=== PATIENT | male | born 1960 | race Caucasian/White ===

== ENCOUNTER 2020-11-08 10:14 | Outpatient (CLI) | payer OTHER, SELFPAY | END 2020-11-08 10:15 | disposition home or self-care (01) | LOC: ANHCOVIDVC 10:14 | PROVIDERS: PCP Family Medicine | DX: Z23 Encounter for immunization (principal) | CPT/HCPCS: 0001A; 91300 ==

== ENCOUNTER 2020-11-29 10:15 | Outpatient (CLI) | payer OTHER, SELFPAY | END 2020-11-29 10:16 | disposition home or self-care (01) | LOC: ANHCOVIDVC 10:15 | PROVIDERS: PCP Family Medicine | DX: Z23 Encounter for immunization (principal) | CPT/HCPCS: 0002A; 91300 ==

== ENCOUNTER 2021-05-18 00:47 | Day surgery (SDC) | payer OTHER, SELFPAY ==
[2021-05-08 14:58] VITALS: BMI 31.8
[2021-05-18 07:42] VITALS: BP 150/86; PULSE 91; RESP 18; TEMP 36.7; O2SAT 99; BMI 32.6
[2021-05-18] MEDS: LACTATED RINGERS 1,000 ML 150 ML IV CONT (07:51)
--- NOTE | 2021-05-18 08:28 | WPDGICN ---
Assessment and Plan Assessment and plan (1) Encounter for screening colonoscopy: Code(s): Z12.11 - Encounter for screening for malignant neoplasm of colon Status: Acute Assessment and Plan: Patient presents for screening colonoscopy. Appears to be at average risk for colon polyps. GI Consult Note Consult date/time: 05/18/21 08:28 HPI: Dre Brady is a 60 year old male Presents for screening colonoscopy. Patient reports that his current weight appetite bowel movements are normal. Is been more than 10 years since last colonoscopy. His family history is noncontributory. Patient reports no difficulties with bowel habits he has had no bleeding. He presents for routine screening exam. Review of Systems Review of Systems: All systems reviewed & are unremarkable except as noted in HPI and below PMFSH Past Medical History Medical History (Updated 05/18/21 @ 08:30 by Miles León MD) Benign essential HTN Hyperlipidemia Family History Family History Father Hypertension Mother Hypertension Other Family history of gout Social History Social History Smoking status: Former smoker Tobacco type: cigarettes and smokeless tobacco Smokeless tobacco user: chewing tobacco Alcohol intake: current Drinks per week: 12 Living arrangements: with family Spiritual care concerns: No Meds Home Medications and Allergies Home Medications Medication Instructions Recorded Confirmed Type aspirin 81 mg tablet,delayed 81 mg PO DAILY 02/20/21 05/08/21 History release cholecalciferol (vitamin D3) 125 125 mcg PO DAILY 02/20/21 05/08/21 History mcg (5,000 unit) tablet geriatric multivitamin-min 1 tablet PO DAILY tablet 02/20/21 05/08/21 History magnesium 200 mg tablet 400 mg PO DAILY tablet 02/20/21 05/08/21 History omega 5-uph-mjq-fish oil 1,200 mg 1 cap PO DAILY 02/20/21 05/08/21 History (144 mg-216 mg) capsule tumeric 100 mg-marlon 150 mg-olive 1 cap PO BID 02/20/21 05/08/21 History 50 mg-oreg 150 mg-caprylate capsule zinc gluconate 50 mg tablet 50 mg PO DAILY 02/20/21 05/08/21 History lisinopril 10 mg PO DAILY 05/08/21 05/08/21 History Allergies Allergy/AdvReac Type Severity Reaction Status Date / Time No Known Allergies Allergy Verified 05/18/21 07:42 Vital Signs Vital Signs - 24 hr 05/18/21 07:42 Temperature 98.1 F Pulse Rate 91 Respiratory Rate 18 Blood Pressure 150/86 H Pulse Oximetry 99 Exam Narrative: Physical exam reveals patient to be alert. Vital signs stable. HEENT exam is unremarkable. Patient is anicteric. Lungs are clear to auscultation and percussion. Heart is without murmur or extra sounds. Abdominal exam bowel sounds are present soft nontender with no organomegaly. Digital external rectal exam is normal.
--- NOTE | 2021-05-18 08:31 | P.PNAN_ITS ---
Anes - Initial Pre Proc Eval Procedure: Operation Date: 05/18/21 08:30 Proposed Procedures p Screening Colonoscopy - Miles León MD Date/Time: 05/18/21 08:31 Surgeon: Miles León MD Pre Op Diagnosis: neoplasm screening Patient Data Age: 60 Gender: M Height: 1.75 m Weight: 100.4 kg Last Vital Signs Temp 98.1 F 05/18/21 07:42 Pulse 91 05/18/21 07:42 Resp 18 05/18/21 07:42 BP 150/86 H 05/18/21 07:42 Pulse Ox 99 05/18/21 07:42 Allergies Allergy/AdvReac Type Severity Reaction Status Date / Time No Known Allergies Allergy Verified 05/18/21 07:42 Home Medications Medication Instructions Recorded Confirmed Type aspirin 81 mg tablet,delayed 81 mg PO DAILY 02/20/21 05/08/21 History release cholecalciferol (vitamin D3) 125 125 mcg PO DAILY 02/20/21 05/08/21 History mcg (5,000 unit) tablet geriatric multivitamin-min 1 tablet PO DAILY tablet 02/20/21 05/08/21 History magnesium 200 mg tablet 400 mg PO DAILY tablet 02/20/21 05/08/21 History omega 4-vmt-qdi-fish oil 1,200 mg 1 cap PO DAILY 02/20/21 05/08/21 History (144 mg-216 mg) capsule tumeric 100 mg-marlon 150 mg-olive 1 cap PO BID 02/20/21 05/08/21 History 50 mg-oreg 150 mg-caprylate capsule zinc gluconate 50 mg tablet 50 mg PO DAILY 02/20/21 05/08/21 History lisinopril 10 mg PO DAILY 05/08/21 05/08/21 History Patient hx anesthesia problems: none Family hx anesthesia problems: none Results Review: All pre-operative results and documents have been reviewed as part of the pre-operative evaluation. [facility] Past Medical History Medical History (Updated 05/18/21 @ 08:30 by Miles León MD) Benign essential HTN Hyperlipidemia Family History Family History Father Hypertension Mother Hypertension Other Family history of gout Social History Social History Smoking status: Former smoker Tobacco type: cigarettes and smokeless tobacco Smokeless tobacco user: chewing tobacco Alcohol intake: current Drinks per week: 12 Living arrangements: with family Spiritual care concerns: No Anes - Eval Final PreProcedure Day of Procedure 05/18/21 08:31 Patient weight: obese Heart: regular rate and rhythm Lungs: clear to auscultation Airway: Mallampati scale class II Neurological: alert and oriented Last oral intake: >/= 8 hours ASA classification: III Emergent: no Anesthetic plan: proceed Anesthesia type and monitoring: general GIVS and standard monitoring Results Review: All pre-operative results and documents have been reviewed as part of the pre-operative evaluation. Informed Consent: The patient's anesthetic plan and its attendant risks and benefits were discussed with the patient/family/POA. Questions were solicited and answers provided to the satisfaction of the patient/family/POA.
[2021-05-18 09:02] VITALS: BP 100/64; PULSE 74; RESP 16; O2SAT 98
[2021-05-18 09:12] VITALS: BP 110/76; PULSE 75; RESP 18; O2SAT 99
[2021-05-18 09:22] VITALS: BP 121/79; PULSE 76; RESP 22; O2SAT 98
== END 2021-05-18 09:36 | disposition home or self-care (01) ==
PROVIDERS: PCP Family Medicine; Visit Provider Internal Medicine Gastroenterology
PROC: 0DJD8ZZ Inspection of Lower Intestinal Tract, Via Natural or Artificial Opening Endoscopic (ICD-10-PCS; CPT 45378; principal; 2021-05-18 08:30)
DX: Z12.11 Encounter for screening for malignant neoplasm of colon (principal); K57.30 Diverticulosis of large intestine without perforation or abscess without bleeding; K64.8 Other hemorrhoids; I10 Essential (primary) hypertension; E78.5 Hyperlipidemia, unspecified; Z87.891 Personal history of nicotine dependence
CPT/HCPCS: 45378; J2704; J7120

== ENCOUNTER 2023-06-20 08:03 | Outpatient (CLI) | payer OTHER, SELFPAY ==
[2023-06-20 20:04] LABS: Alanine Aminotransferase 24 U/L (6-50); Albumin Level 4.1 g/dL (3.5-5.1); Alkaline Phosphatase 75 U/L (38-126); Anion Gap 4 mmol/L (8-16); Aspartate Amino Transferase 26 U/L (17-59); Bilirubin,Total 0.6 mg/dL (0.2-1.3); Blood Urea Nitrogen 14 mg/dL (9-20); Calcium 9.2 mg/dL (8.4-10.2); Carbon Dioxide 30 mmol/L (22-30); Chloride 103 mmol/L (98-107); Cholesterol 173 mg/dL (0-200); Estimated Glomerular Filt Rate > 60; Glucose 97 mg/dL (65-110); HDL Direct 40 mg/dL; Potassium 4.3 mmol/L (3.4-5.0); Sodium 137 mmol/L (137-145); Triglycerides 110 mg/dL (<150)
[2023-06-20 20:15] LABS: LDL Cholesterol Direct 102 mg/dL
== END 2023-06-20 08:04 | disposition home or self-care (01) ==
LOC: ANHGOSHLAB 08:05
PROVIDERS: PCP Family Medicine; Visit Provider Family Medicine
DX: E78.5 Hyperlipidemia, unspecified (principal)
CPT/HCPCS: 36415; 80053; 80061

== ENCOUNTER 2024-07-01 12:37 | Emergency (ER) | payer MEDICARE, SELFPAY ==
[2024-07-01] VITALS (8 sets, daily range): BP systolic 139–168; BP diastolic 78–91; PULSE 85–93; RESP 15–24; TEMP 37.1; O2SAT 98–100
--- NOTE | ~2024-07-01 | CT_ITS ---
Non-contrast Head CT History: CVA Technique: Axial non-contrast imaging of the brain was performed. Dose reduction technique was used on this scan by utilizing automated exposure control and iterative reconstruction technique. The dose -length product (DLP) was 681.00 mGy-cm. Findings: There is no evidence of intracranial hemorrhage, mass lesion, or acute infarct. Brain par enchyma appears normal. The ventricles and subarachnoid spaces are normal in size. The calvarium ap pears normal. The visualized paranasal sinuses and mastoid air cells are clear. Impression: No significant abnormality seen. Case discussed with Dr. Bateman at 12:55 PM on 07/01/2024. Reviewed, dictated and finalized at [facility]. MO TENDER Impression: No significant abnormality seen. Case discussed with Dr. Bateman at 12:55 PM on 07/01/2024.
--- NOTE | ~2024-07-01 | CT_ITS ---
EXAMINATION: CTA brain carotid DATE: 07/01/2024 13:02 INDICATION: Cerebrovascular accident. TECHNIQUE: Computed tomographic angiography (CTA) of the head was performed with 100 mL Omnipaque-350 intravenous contrast. CTA of the neck was performed with intravenous contrast. Automated exposure co ntrol and iterative reconstruction technique were employed. The dose-length product was 1193.95 mGy-c m. Maximum intensity projection and volume rendered 3D-reconstructions were created by the [address] on a separate workstation. COMPARISON: Head CT 07/01/2024, 10/09/2015, brain MRI 10/10/2015 FINDINGS: HEAD CTA: There is a small old infarct in right cerebellum. There is no intracranial hemorrhage, acut e infarction, or abnormal intracranial mass lesion. The ventricles are normal in size. There are like ly changes of ocular lens replacement surgeries. There are changes of right-sided scleral banding pro cedure. There is mild mucosal thickening in the paranasal sinuses. The mastoid air cells are normal. Left vertebral artery is dominant. There is no significant stenosis of basilar artery or the posterio r cerebral arteries. There is no significant stenosis of intracranial internal carotid arteries or an terior or middle cerebral arteries. Anterior communicating artery is normal. There is no aneurysm. Po sterior communicating arteries are not visualized. NECK CTA: There is mild emphysema. There are no pathologically enlarged lymph nodes. There is no sign ificant stenosis of the vertebral arteries. There is plaque in the proximal internal carotid arteries . There is 13% stenosis of the proximal right internal carotid artery relative to normal distal arter y lumen diameter (NASCET criteria). There is 0% stenosis of the proximal left internal carotid artery relative to normal distal artery lumen diameter. There is severe cervical spondylosis. IMPRESSION: 1. Small old infarct in right cerebellum. 2. No aneurysm or significant intracranial arterial stenosis. 3. 13% stenosis of the proximal right internal carotid artery relative to normal distal artery lumen diameter (NASCET criteria). 4. 0% stenosis of the proximal left internal carotid artery relative to normal distal artery lumen di ameter. Reviewed, dictated and finalized at location A. ENT CARE REPRESENTATIVE IMPRESSION: 1. Small old infarct in right cerebellum. 2. No aneurysm or significant intracranial arterial stenosis. 3. 13% stenosis of the proximal right internal carotid artery relative to melani l distal artery lumen diameter (NASCET criteria). 4. 0% stenosis of the proximal left internal carotid artery relative to normal distal artery lumen diameter.
--- NOTE | ~2024-07-01 | XR_ITS ---
XR chest 1V portable Ordering provider: Salud Bateman MD History: 63 years Male with . CVA CONFUSION W/LEFT ARM TINGLING . Comparison: None. FINDINGS: MEDIASTINUM: The cardiac silhouette is not enlarged. LUNGS: No effusions or pneumothorax. Opacification in the lower lobes suggestive of atelectasis versu s pneumonia. Underlying emphysematous changes. OTHER: No free air under the diaphragm. IMPRESSION: Bilateral basal atelectasis versus pneumonia. Clinical correlation advised. Reviewed, dictated and finalized at location A. PPER AND BUFFER
--- NOTE | ~2024-07-01 | CT_ITS ---
Noncontrast CT scan of the cervical spine Technique: Multiple contiguous axial [address] images of the cervical spine were obtained and rec onstructed in 2D sagittal and coronal planes on the acquisition scanner. Dose reduction technique was used on this scan by utilizing automated exposure control, adjustment of the mA and/or kV according to patient size. The dose-length product (DLP) was 0.00 mGy-cm. Clinical History: Paresthesia Findings: No fractures or dislocations. There is severe degenerative disc narrowing at C3-C4, with m inimal grade 1 retrolisthesis at this level. There is moderate to advanced degenerative disc narrowin g at C5-C6 and C6-C7. There is bilateral facet arthropathy at C3-C4, left worse than right, with adva nced bilateral neural foraminal narrowing, left worse than right. There is prominent left facet arthr opathy and left neural foraminal narrowing at C4-C5. There is bilateral facet arthropathy and neural foraminal narrowing at C5-C6, right worse than left. There is bilateral neural foraminal narrowing at C6-C7. Probable moderate stenosis and mild cord compression at C3-C4.. No prevertebral soft tissue s welling. Impression: No acute fracture. Moderate to advanced degenerative change, as above. Probable moderate canal stenosis and mild cord co mpression at C3-C4. Consider follow-up MR as further evaluation, as indicated. Reviewed, dictated and finalized at [facility]. L TRUER Impression: No acute fracture. Moderate to advanced degenerative change, as above. Probable moderate canal varun nosis and mild cord compression at C3-C4. Consider follow-up MR as further eval uation, as indicated.
--- NOTE | ~2024-07-01 | US_ITS ---
LEFT UPPER EXTREMITY VENOUS ULTRASOUND Ordering provider: Salud Bateman MD History: . paresthesias . Comparison: None. FINDINGS: --JUGULAR: Patent and free of thrombus. Normal compressibility, phasic flow and augmentation. --SUBCLAVIAN: Patent and free of thrombus. Normal compressibility, phasic flow and augmentation. --AXILLARY: Patent and free of thrombus. Normal compressibility, phasic flow and augmentation. --BRACHIAL: Patent and free of thrombus. Normal compressibility, phasic flow and augmentation. --CEPHALIC: Patent and free of thrombus. Normal compressibility, phasic flow and augmentation. --BASILIC: Patent and free of thrombus. Normal compressibility, phasic flow and augmentation. --RADIAL: Patent and free of thrombus. Normal compressibility, phasic flow and augmentation. --ULNAR: Patent and free of thrombus. Normal compressibility, phasic flow and augmentation. IMPRESSION: Negative left upper extremity venous US. No deep vein thrombosis. Reviewed, dictated and finalized at location A. EN OPERATOR
--- NOTE | ~2024-07-01 | CT_ITS ---
EXAMINATION: CTA UE DATE: 07/01/2024 13:20 INDICATION: Left upper limb arterial occlusive disease. TECHNIQUE: Computed tomographic angiography (CTA) of the left upper limb was performed with 100 mL Om nipaque-350 intravenous contrast. Automated exposure control and iterative reconstruction technique w ere employed. The dose-length product was 313.49 mGy-cm. Maximum intensity projection 3D-reconstructi ons of the arteries were constructed by the technologist on a separate workstation. COMPARISON: None. FINDINGS: There is mild emphysema. There is no significant stenosis of left subclavian artery, axilla ry artery, brachial artery, radial artery, or ulnar artery. The hand arteries are not well evaluated. IMPRESSION: 1. No significant arterial occlusive disease. Reviewed, dictated and finalized at location A. TO CHIP COOKER MACHINE
[2024-07-01 12:43] LABS: Glucose Point of Care 104 mg/dl (65-105)
--- NOTE | 2024-07-01 12:46 | ECG_ITS ---
Test Date: 2024-07-01 13:25:59 Measurements Intervals [place] Rate: 92 P: 51 LA: 177 QRS: 11 QRSD: 106 T: 34 QT: 356 QTc: 441 Interpretive Statements SINUS RHYTHM POSSIBLE LEFT ATRIAL ENLARGEMENT INCOMPLETE RIGHT BUNDLE BRANCH BLOCK CONSIDER INFERIOR INFARCT, AGE INDETERMINATE BASELINE ARTIFACT- V1, V3 ABNORMAL ECG No previous ECG available for comparison Electronically Signed On 07-01-2024 13:49:27 CONVERTER OPERATOR by Alex Still D.O.
[2024-07-01 12:53] LABS: Estimated Glomerular Filt Rate > 60
--- NOTE | 2024-07-01 12:56 | ED.NEUROSD ---
HPI - Neuro Symptoms/Deficit General Chief Complaint: Suspected CVA Stated Complaint: stroke symptoms, last known normal 0900 Time Seen by Provider: 07/01/24 12:49 Source: patient and family Mode of arrival: ambulatory Limitations: no limitations History of Present Illness HPI Narrative: Patient presents with complaint feeling foggy headed this morning. Last known well was approximately 10:30 p.m. last night. He initially states that he did not have any symptoms when he 1st woke up but then he states that actually he cannot remember when he woke up and does not recall if he had symptoms when he first woke up. He did not call his mom which is unusual. He cannot remember when he woke up. He denies any falls. He took 2 aspirin this morning. He has been having tingling in his left hand. Denies any slurred speech or headache. He had a transient ischemic attack proximally fiber 6 years ago with no deficits. He had a retinal detachment in January which was operated on and he regained vision in this eye though notes that his pupils are unequal. Related Data Home Medications Medication Instructions Recorded Confirmed aspirin 81 mg tablet,delayed 81 mg PO DAILY 02/20/21 06/12/24 release (Adult Low Dose Aspirin) cholecalciferol (vitamin D3) 125 125 mcg PO DAILY 02/20/21 06/12/24 mcg (5,000 unit) tablet geriatric multivitamin-min 1 tablet PO DAILY 02/20/21 06/12/24 magnesium 200 mg tablet 400 mg PO DAILY 02/20/21 06/12/24 omega 8-xxm-jpd-fish oil 1,200 mg 1 cap PO DAILY 02/20/21 06/12/24 (144 mg-216 mg) capsule (Fish Oil) turmeric 100 mg-marlon 150 1 cap PO BID 02/20/21 06/12/24 mg-olive 50 mg-oreg 150 mg-capryl capsule Allergies Allergy/AdvReac Type Severity Reaction Status Date / Time No Known Allergies Allergy Verified 06/12/24 13:11 [facility], [facility] Past Medical History Medical History (Updated 07/01/24 @ 17:09 by Salud Bateman MD) Actinic keratosis Anterior dislocation of left shoulder Benign essential HTN Chronic gout, unspecified, with tophus (tophi) Detached retina, right January 2024; s/p reattachment Diverticulosis of intestine, part unspecified, without perforation or abscess with bleeding Hyperlipidemia Nicotine dependence, chewing tobacco, uncomplicated Pupil asymmetry Seasonal allergic rhinitis due to pollen TIA (transient ischemic attack) approx ; no deficits Unspecified cataract Family History Family History Father Hypertension Mother Hypertension Other Family history of gout Social History Social History Smoking status: Former smoker (just chews ) Tobacco type: cigarettes and smokeless tobacco Smokeless tobacco user: chewing tobacco Alcohol intake: current Drinks per week: 12 Substance use: never Substance use type: does not use Do You Feel Safe in your Home?: Yes Lack of Transportation: No Lack of Food: Never True Current Housing: I Have Housing Concerned About Future Housing: No Difficulty Paying Gas/Electric Bills: No Difficulty Paying for Meds: No Currently Unemployed: No Education: Trade/Vocational Certificate Difficulty w/ Childcare or Family Care: No Living arrangements: with family Occupation/Education: retired Gender identity (if verbalized by the patient): Male Sexual Orientation (if Verbalized by the Patient): Straight or Heterosexual Spiritual care concerns: No Agree to blood products: Yes Exam Narrative: GENERAL: Well-appearing, well-nourished, and in no acute distress. HEAD: Normocephalic, atraumatic. EYES: Non injected, non icteric. Horizontal extraocular movements intact. Normal visual galvez. Patient does have unequal pupils, 5 mm on the right and 2 mm on left (states chronic) ENT: Nares clear, no rhinorrhea or epistaxis. NECK: Supple. CHEST: Speaking in full sentences. No respiratory distress. HEART: Regular rate and rhythm. . ABDOMEN: Soft, nondistended. EXTREMITIES: Normal range of motion. No lower extremity edema. SKIN: Warm, dry, no rash. Left arm cool to the touch compared to the right NEURO: No focal deficits. Alert and oriented x3. Answers questions, follows commands. No motor drift x4 extremities. Sensation intact throughout although describes paresthesias in LUE. No extinction. Speaks clearly without aphasia or dysarthria. No ataxia on didajw-fyaz-dgpsjz. PSYCH: Normal mood and affect. Course Vital Signs Vital signs: Vital Signs Temperature 98.7 F 07/01/24 12:55 Pulse Rate 93 07/01/24 12:55 Respiratory Rate 18 07/01/24 12:55 Blood Pressure 168/85 H 07/01/24 12:55 Pulse Oximetry 100 07/01/24 12:55 Oxygen Delivery Room Air 07/01/24 12:55 Temperature 98.7 F 07/01/24 12:55 Pulse Rate 85 07/01/24 17:33 Respiratory Rate 18 07/01/24 17:33 Blood Pressure 154/86 H 07/01/24 17:33 Pulse Oximetry 100 07/01/24 17:33 Oxygen Delivery Room Air 07/01/24 12:55 MDM - Neuro Symptoms/Deficit MDM Narrative Medical decision making narrative: This is a 63 year old male who presents to the emergency department with concern for possible stroke. Last known well is 22:30. The patient is protecting their airway which is patent. In the emergency department he is afebrile vital signs notable for hypertension. An IV is established by nursing staff blood work sent to the lab for evaluation. An EKG will be performed. Accu-Chek was reportedly normal. NIHSS was evaluated per below. The patient was transported immediately to CT scan for evaluation of intracranial bleed. NIHSS Level Of consciousness: 0 Month and age:0 Follows commands:0 Gaze palsy:0 Visual galvez:0 Facial palsy:0 Left arm motor drift:0 Right arm motor drift:0 Left leg motor drift:0 Right leg motor drift:0 Limb ataxia:0 Sensation:0 Aphasia:0 Dysarthria:0 Extinction:0 Total: 0 CT as below. Labs including troponin are unremarkable. Patient's symptoms are not convincing for a stroke, though again, unclear. Chest x-ray read as atelectasis versus pneumonia. Pending BNP and viral swab. Patient does not have a leukocytosis. He denies any shortness of breath. He states he has been having some cough and nasal congestion for which his doctor has him on steroids, a course of antibiotics, using a Neti pot, Flonase, etc. he denies any fevers or chills. For this reason, will defer adding additional antibiotics at this time. Viral swab negative. Reassessed patient at approximately 4:45 p.m.. We thoroughly discussed his workup thus far. He states that he does remember talking with his this morning when she got up at 4:00 a.m. to go to work and he also remembers talking with his mother although he does not remember the particulars of what he was talking about. He was walking around the time doing other tasks. He is otherwise back to baseline. His only complaint is of some very mild paresthesias in his left index finger but this is the finger that the pulse ox has been on. 2+ radial pulses and temperature symmetric between. Again, it is unclear this represents a transient ischemic attack as his symptoms do not appear to localize to a particular lesion. If it did, ABCD2 score is 4 points which is moderate risk. We discussed the possibility of staying for an observation admission for further workup. However, through shared decision-making, he and his family member at bedside feel comfortable with being discharged home. This does seem reasonable. We did extensively discuss that he should return to the emergency department with any new or worsening symptoms. He does have an upcoming appointment with his primary care physician in the next 1-2 weeks. Advised to discuss with this PCP this episode and work up. Discharged in stable condition. Differential Diagnosis Differential diagnosis: Likely subarachnoid hemorrhage, cerebrovascular accident, transient cerebral ischemia and other (Electrolyte abnormalities, urinary tract infection, pneumonia, acute viral syndrome; DVT; arterial insufficiency) Lab Data Attestation: I reviewed the patient's lab results. 07/01/24 12:50 07/01/24 12:51 Labs: Lab Results 07/01/24 07/01/24 07/01/24 Range/Units 12:41 12:48 12:50 WBC 9.9 (4.5-10.0) K/mm3 RBC 4.91 (4.6-6.20) M/mm3 Hgb 15.8 (14.0-18.0) g/dL Hct 46.4 (42.0-52.0) % MCV 94.5 (80-100) fl MCH 32.2 (26-34) pg MCHC 34.1 (32-36) g/dl RDW 12.2 (11.5-14.5) % Plt Count 253 (150-375) k/mm3 MPV 10.1 (7.4-10.4) fl Immature Gran % (Auto) 0.7 H (0-0.5) % Neut % (Auto) 81.5 H (45.5-73.1) % Lymph % (Auto) 9.5 L (18.3-44.2) % [place] % (Auto) 6.7 (2.6-8.5) % Eos % (Auto) 1.2 (0-4.4) % Baso % (Auto) 0.4 (0.2-1.2) % Lymph # (Auto) 0.94 (0.9-3.2) K/mm3 [place] # (Auto) 0.7 H (0.1-0.6) K/mm3 Eos # (Auto) 0.1 (0-0.3) K/mm3 Baso # (Auto) 0.0 (0.0-0.1) K/mm3 Abs Immat Gran (auto) 0.07 H (0.00-0.031) K/mm3 Absolute Neuts (auto) 8.0 H (1.3-6.7) K/mm3 Absolute Nucleated RBC 0.000 (0.0-0.012) K/mm3 Nucleated RBC % 0.0 (0.0-0.2) % PT (11.1-14.7) Seconds INR APTT (22.3-36.8) Seconds Sodium 139 (137-145) mmol/L Potassium 4.2 (3.4-5.0) mmol/L Chloride 105 (98-107) mmol/L Carbon Dioxide 24 (22-30) mmol/L Anion Gap 10 (4-12) mmol/L BUN 13 (9-20) mg/dL Creatinine 0.80 (0.7-1.3) mg/dL Estim Creat Clear Calc Not Reportable Estimated GFR > 60 (59 - ) Glucose 103 (65-110) mg/dL POC Capillary Glucose 104 (65-105) mg/dl Calcium 9.3 (8.4-10.2) mg/dL Total Bilirubin 0.9 (0.2-1.3) mg/dL AST 28 (17-59) U/L ALT 23 (6-50) U/L Alkaline Phosphatase 70 (38-126) U/L Troponin I < 0.012 (0.000-0.034) ng/mL NT-Pro-B Natriuret Pep 60 (19.9-100) pg/mL Total Protein 8.0 (6.3-8.2) g/dL Albumin 4.6 (3.5-5.1) g/dL Urine Color (Yellow) Urine Appearance (Clear) Urine pH (5.0-9.0) Ur Specific [place] (1.001-1.035) Urine Protein (Negative) mg/dL Urine Glucose (UA) (Negative) mg/dL Urine Ketones (Negative) mg/dL Ur Blood (Man) (Negative) Urine Nitrate (Negative) Urine Bilirubin (Negative) Urine Urobilinogen (<2.0) mg/dL Leukocyte Esterase Rfl (Negative) HARESH/UL Urine Opiates Screen (Negative) Urine Methadone Screen (Negative) Ur Barbiturates Screen (Negative) Ur Phencyclidine Scrn (Negative) Ur Amphetamine Screen (Negative) U Benzodiazepines Scrn (Negative) Urine Cocaine Screen (Negative) U Cannabinoids Screen (Negative) Influenza A (RT-PCR) (Negative) Influenza B (RT-PCR) (Negative) RSV (RT-PCR) (Negative) SARS-CoV-2 RNA (RT-PCR) (Negative) 07/01/24 07/01/24 07/01/24 Range/Units 12:51 13:26 13:42 WBC (4.5-10.0) K/mm3 RBC (4.6-6.20) M/mm3 Hgb (14.0-18.0) g/dL Hct (42.0-52.0) % MCV (80-100) fl MCH (26-34) pg MCHC (32-36) g/dl RDW (11.5-14.5) % Plt Count (150-375) k/mm3 MPV (7.4-10.4) fl Immature Gran % (Auto) (0-0.5) % Neut % (Auto) (45.5-73.1) % Lymph % (Auto) (18.3-44.2) % [place] % (Auto) (2.6-8.5) % Eos % (Auto) (0-4.4) % Baso % (Auto) (0.2-1.2) % Lymph # (Auto) (0.9-3.2) K/mm3 [place] # (Auto) (0.1-0.6) K/mm3 Eos # (Auto) (0-0.3) K/mm3 Baso # (Auto) (0.0-0.1) K/mm3 Abs Immat Gran (auto) (0.00-0.031) K/mm3 Absolute Neuts (auto) (1.3-6.7) K/mm3 Absolute Nucleated RBC (0.0-0.012) K/mm3 Nucleated RBC % (0.0-0.2) % PT 13.8 (11.1-14.7) Seconds INR 1.0 APTT 27.2 (22.3-36.8) Seconds Sodium (137-145) mmol/L Potassium (3.4-5.0) mmol/L Chloride (98-107) mmol/L Carbon Dioxide (22-30) mmol/L Anion Gap (4-12) mmol/L BUN (9-20) mg/dL Creatinine 1.00 (0.7-1.3) mg/dL Estim Creat Clear Calc Not Reportable Estimated GFR > 60 (59 - ) Glucose (65-110) mg/dL POC Capillary Glucose (65-105) mg/dl Calcium (8.4-10.2) mg/dL Total Bilirubin (0.2-1.3) mg/dL AST (17-59) U/L ALT (6-50) U/L Alkaline Phosphatase (38-126) U/L Troponin I (0.000-0.034) ng/mL NT-Pro-B Natriuret Pep (19.9-100) pg/mL Total Protein (6.3-8.2) g/dL Albumin (3.5-5.1) g/dL Urine Color Yellow (Yellow) Urine Appearance Clear (Clear) Urine pH 5.0 (5.0-9.0) Ur Specific [place] 1.045 H (1.001-1.035) Urine Protein Negative (Negative) mg/dL Urine Glucose (UA) Negative (Negative) mg/dL Urine Ketones 1+ H (Negative) mg/dL Ur Blood (Man) Negative (Negative) Urine Nitrate Negative (Negative) Urine Bilirubin Negative (Negative) Urine Urobilinogen 0.2 (<2.0) mg/dL Leukocyte Esterase Rfl Negative (Negative) HARESH/UL Urine Opiates Screen Negative (Negative) Urine Methadone Screen Negative (Negative) Ur Barbiturates Screen Negative (Negative) Ur Phencyclidine Scrn Negative (Negative) Ur Amphetamine Screen Negative (Negative) U Benzodiazepines Scrn Negative (Negative) Urine Cocaine Screen Negative (Negative) U Cannabinoids Screen Negative (Negative) Influenza A (RT-PCR) (Negative) Influenza B (RT-PCR) (Negative) RSV (RT-PCR) (Negative) SARS-CoV-2 RNA (RT-PCR) (Negative) 07/01/24 Range/Units 14:14 WBC (4.5-10.0) K/mm3 RBC (4.6-6.20) M/mm3 Hgb (14.0-18.0) g/dL Hct (42.0-52.0) % MCV (80-100) fl MCH (26-34) pg MCHC (32-36) g/dl RDW (11.5-14.5) % Plt Count (150-375) k/mm3 MPV (7.4-10.4) fl Immature Gran % (Auto) (0-0.5) % Neut % (Auto) (45.5-73.1) % Lymph % (Auto) (18.3-44.2) % [place] % (Auto) (2.6-8.5) % Eos % (Auto) (0-4.4) % Baso % (Auto) (0.2-1.2) % Lymph # (Auto) (0.9-3.2) K/mm3 [place] # (Auto) (0.1-0.6) K/mm3 Eos # (Auto) (0-0.3) K/mm3 Baso # (Auto) (0.0-0.1) K/mm3 Abs Immat Gran (auto) (0.00-0.031) K/mm3 Absolute Neuts (auto) (1.3-6.7) K/mm3 Absolute Nucleated RBC (0.0-0.012) K/mm3 Nucleated RBC % (0.0-0.2) % PT (11.1-14.7) Seconds INR APTT (22.3-36.8) Seconds Sodium (137-145) mmol/L Potassium (3.4-5.0) mmol/L Chloride (98-107) mmol/L Carbon Dioxide (22-30) mmol/L Anion Gap (4-12) mmol/L BUN (9-20) mg/dL Creatinine (0.7-1.3) mg/dL Estim Creat Clear Calc Estimated GFR (59 - ) Glucose (65-110) mg/dL POC Capillary Glucose (65-105) mg/dl Calcium (8.4-10.2) mg/dL Total Bilirubin (0.2-1.3) mg/dL AST (17-59) U/L ALT (6-50) U/L Alkaline Phosphatase (38-126) U/L Troponin I (0.000-0.034) ng/mL NT-Pro-B Natriuret Pep (19.9-100) pg/mL Total Protein (6.3-8.2) g/dL Albumin (3.5-5.1) g/dL Urine Color (Yellow) Urine Appearance (Clear) Urine pH (5.0-9.0) Ur Specific [place] (1.001-1.035) Urine Protein (Negative) mg/dL Urine Glucose (UA) (Negative) mg/dL Urine Ketones (Negative) mg/dL Ur Blood (Man) (Negative) Urine Nitrate (Negative) Urine Bilirubin (Negative) Urine Urobilinogen (<2.0) mg/dL Leukocyte Esterase Rfl (Negative) HARESH/UL Urine Opiates Screen (Negative) Urine Methadone Screen (Negative) Ur Barbiturates Screen (Negative) Ur Phencyclidine Scrn (Negative) Ur Amphetamine Screen (Negative) U Benzodiazepines Scrn (Negative) Urine Cocaine Screen (Negative) U Cannabinoids Screen (Negative) Influenza A (RT-PCR) Negative (Negative) Influenza B (RT-PCR) Negative (Negative) RSV (RT-PCR) Negative (Negative) SARS-CoV-2 RNA (RT-PCR) Negative (Negative) Imaging Data Attestation: I personally reviewed and interpreted this imaging study as follows: My impression: I Do appreciate some peripheral haziness on the chest x-ray however possibly due to body habitus or benign atelectasis Radiologist's impression: Impressions Head CT 07/01/24 12:55 Impression: No significant abnormality seen. Case discussed with Dr. Bateman at 12:55 PM on 07/01/2024. Head/Neck CTA 07/01/24 13:02 IMPRESSION: 1. Small old infarct in right cerebellum. 2. No aneurysm or significant intracranial arterial stenosis. 3. 13% stenosis of the proximal right internal carotid artery relative to normal distal artery lumen diameter (NASCET criteria). 4. 0% stenosis of the proximal left internal carotid artery relative to normal distal artery lumen diameter. Cervical Spine CT 07/01/24 13:33 Impression: No acute fracture. Moderate to advanced degenerative change, as above. Probable moderate canal stenosis and mild cord compression at C3-C4. Consider follow-up MR as further evaluation, as indicated. Upper Extremity CTA 07/01/24 14:05 IMPRESSION: 1. No significant arterial occlusive disease. Chest X-Ray 07/01/24 14:08 IMPRESSION: Bilateral basal atelectasis versus pneumonia. Clinical correlation advised. Venous Doppler Study 07/01/24 14:46 IMPRESSION: Negative left upper extremity venous US. No deep vein thrombosis. ECG Data EKG #1: Attestation: I personally reviewed and interpreted this ECG as follows: ECG completion date: 07/01/24 ECG completion time: 13:25 Interpretation: Normal sinus rhythm at a rate of 92 beats per minute. IA interval 177. QRS 106. QT/QTC 356 /406. Good R-wave progression across the precordial leads. No T-wave inversion. No T-wave inversions. Discharge Plan Discharge Clinical Impression: Episodic altered awareness, Cervical stenosis of spinal canal Internal carotid artery stenosis Qualifiers: Laterality: right Qualified Code(s): I65.21 - Occlusion and stenosis of right carotid artery Patient Disposition: Home, Self-Care Condition: Stable Instructions: Antibiotic Form, Carotid Artery Disease (DC), Cervical Spinal Stenosis (ED), Altered Mental Status (ED) Additional Instructions: As we discussed, the cause of your symptoms remains unclear but after a thorough workup you are feeling back to normal and feel comfortable with being discharged. Keep Your upcoming appointment with primary care physician as follow-up. Return to the emergency department with any new or worsening symptoms. Prescriptions: No Action prednisone 10 mg tablet See Rx Instructions PO DAILY Qty: 42 0RF Rx Instructions: 6 po qdayx 2 days, 5 x 2days,4 x 2 d,3 x 2d,2 x 2d, 1 x 2 days PO daily; doxycycline monohydrate 100 mg capsule 100 mg PO DAILY Qty: 40 0RF fluticasone propionate [Flonase Allergy Relief] 50 mcg/actuation spray,suspension 2 spray intranasal DAILY Qty: 16 5RF Rx Instructions: administer into each nostril omega 3-tgh-cxr-fish oil [Fish Oil] 1,200 (144-216) mg capsule 1 cap PO DAILY cholecalciferol (vitamin D3) 125 mcg (5,000 unit) tablet 125 mcg PO DAILY geriatric multivitamin-min Tablet 1 tablet PO DAILY qcgirmkq-sulm-nijpm-oreg-capry 100 mg-150 mg- 50 mg-150 mg capsule 1 cap PO BID magnesium 200 mg tablet 400 mg PO DAILY aspirin [Adult Low Dose Aspirin] 81 mg tablet,delayed release (DR/EC) 81 mg PO DAILY atorvastatin 10 mg tablet 10 mg PO QHS Qty: 90 1RF lisinopril 10 mg tablet 10 mg PO DAILY Qty: 90 1RF prednisone 50 mg tablet 50 mg PO DAILY Qty: 7 0RF Follow-up/Referrals: Andres Daniel MD [Primary Care Provider] - Stand Alone Forms: Work/School Release IP Time of Disposition: 17:08
[2024-07-01 13:03] LABS: Basophils Percent Auto 0.4 % (0.2-1.2); Eosinophils Absolute Auto 0.1 K/mm3 (0-0.3); Eosinophils Percent Auto 1.2 % (0-4.4); Hematocrit 46.4 % (42.0-52.0); Hemoglobin 15.8 g/dL (14.0-18.0); Immature Granulocyte Absolute 0.07 K/mm3 (0.00-0.031); Immature Granulocyte Percent A 0.7 % (0-0.5); Lymphocytes Absolute Auto 0.94 K/mm3 (0.9-3.2); Lymphocytes Percent Auto 9.5 % (18.3-44.2); Mean Corpuscular HGB Conc 34.1 g/dl (32-36); Mean Corpuscular Hemoglobin 32.2 pg (26-34); Mean Corpuscular Volume 94.5 fl (80-100); Mean Platelet Volume 10.1 fl (7.4-10.4); Monocytes Absolute Auto 0.7 K/mm3 (0.1-0.6); Monocytes Percent Auto 6.7 % (2.6-8.5); Neutrophils Percent Auto 81.5 % (45.5-73.1); Platelet Count Result 253 k/mm3 (150-375); Red Blood Count 4.91 M/mm3 (4.6-6.20); Red Cell Distribution Width 12.2 % (11.5-14.5); White Blood Count 9.9 K/mm3 (4.5-10.0)
[2024-07-01 13:10] LABS: Alanine Aminotransferase 23 U/L (6-50); Albumin Level 4.6 g/dL (3.5-5.1); Alkaline Phosphatase 70 U/L (38-126); Anion Gap 10 mmol/L (4-12); Aspartate Amino Transferase 28 U/L (17-59); Bilirubin,Total 0.9 mg/dL (0.2-1.3); Blood Urea Nitrogen 13 mg/dL (9-20); Calcium 9.3 mg/dL (8.4-10.2); Carbon Dioxide 24 mmol/L (22-30); Chloride 105 mmol/L (98-107); Estimated Glomerular Filt Rate > 60; Glucose 103 mg/dL (65-110); Potassium 4.2 mmol/L (3.4-5.0); Sodium 139 mmol/L (137-145)
[2024-07-01 13:22] LABS: Troponin I < 0.012 ng/mL (0.000-0.034)
[2024-07-01 13:33] LABS: Add Urine Microscopic? NO; Appearance Urine Clear (Clear); Bilirubin Urine Negative (Negative); Blood Urine Negative (Negative); Color Urine Yellow (Yellow); Glucose Urine UA Negative (Negative); Ketones Urine 1+ mg/dL (Negative); Leukocyte Esterase Ur Negative LEU/UL (Negative); Nitrate Urine Negative (Negative); Protein Urine Negative (Negative); Specific Grav Ur 1.045 (1.001-1.035); Urobilinogen Urine 0.2 mg/dL (<2.0)
[2024-07-01 14:18] LABS: Amphetamine Screen Urine Negative (Negative); Barbiturate Screen Urine Negative (Negative); Benzodiazepines Screen Urine Negative (Negative); Cannabinoid Screen Urine Negative (Negative); Cocaine Screen Urine Negative (Negative); Methadone Screen Urine Negative (Negative); Opiate Screen Urine Negative (Negative); Phencyclidine Screen Urine Negative (Negative)
[2024-07-01 14:24] LABS: Prothrombin Time 13.8 Seconds (11.1-14.7)
[2024-07-01 14:25] LABS: Partial Thromboplastin Time 27.2 Seconds (22.3-36.8)
[2024-07-01 15:13] LABS: NT Pro B Type Natriuretic Pept 60 pg/mL (19.9-100)
[2024-07-01 15:58] LABS: Influenza A QL RT-PCR Negative (Negative); Influenza B QL RT-PCR Negative (Negative); RSV RNA, RT-PCR Negative (Negative); SARS-CoV-2 RNA PCR Negative (Negative)
== END 2024-07-01 17:33 | disposition home or self-care (01) ==
PROVIDERS: Emergency Provider Student in an Organized Health Care Education/Training Program; PCP Family Medicine
DX: R40.4 Transient alteration of awareness (principal); M48.02 Spinal stenosis, cervical region; I65.21 Occlusion and stenosis of right carotid artery; I10 Essential (primary) hypertension; E78.5 Hyperlipidemia, unspecified; Z86.73 Personal history of transient ischemic attack (TIA), and cerebral infarction without residual deficits; Z87.891 Personal history of nicotine dependence; Z20.822 Contact with and (suspected) exposure to COVID-19; Z86.718 Personal history of other venous thrombosis and embolism; Z79.899 Other long term (current) drug therapy
CPT/HCPCS: 36415; 70450; 70496; 70498; 71045; 72125; 73206; 80053; 80307; 81003; 82948; 83880; 84484; 85025; 85610; 85730; 87637; 93005; 93971; 99284; Q9967

== ENCOUNTER 2024-11-11 13:28 | Outpatient (CLI) | payer MEDICARE, SELFPAY ==
--- NOTE | ~2024-11-11 | XR_ITS ---
AP and lateral views of the right hip Clinical history: Pain Findings: No acute fracture or dislocation is seen. Osseous alignment is anatomic. There is mild dege nerative change of the right hip joint. Soft tissues are unremarkable. Impression: Mild degenerative change right hip joint. Reviewed, dictated and finalized at location . Impression: Mild degenerative change right hip joint.
== END 2024-11-11 13:29 | disposition home or self-care (01) ==
LOC: GOSHIMG 13:30
PROVIDERS: PCP Family Medicine; Visit Provider Family Medicine
DX: M16.11 Unilateral primary osteoarthritis, right hip (principal)
CPT/HCPCS: 73502

== ENCOUNTER 2024-12-30 08:17 | Outpatient (CLI) | payer MEDICARE, SELFPAY ==
[2024-12-30 14:10] LABS: Alanine Aminotransferase 22 U/L (6-50); Albumin Level 4.3 g/dL (3.5-5.1); Alkaline Phosphatase 71 U/L (38-126); Anion Gap 6 mmol/L (4-12); Aspartate Amino Transferase 48 U/L (17-59); Bilirubin,Total 0.7 mg/dL (0.2-1.3); Blood Urea Nitrogen 19 mg/dL (9-20); Calcium 9.3 mg/dL (8.4-10.2); Carbon Dioxide 29 mmol/L (22-30); Chloride 105 mmol/L (98-107); Cholesterol 164 mg/dL (0-200); Estimated Glomerular Filt Rate > 60; Glucose 89 mg/dL (65-110); HDL Direct 54 mg/dL; Sodium 140 mmol/L (137-145); Triglycerides 64 mg/dL (<150)
[2024-12-30 14:27] LABS: LDL Cholesterol Direct 79 mg/dL
[2024-12-30 14:53] LABS: Hepatitis C Virus Antibody Negative (Negative)
== END 2024-12-30 08:18 | disposition home or self-care (01) ==
LOC: ANHGOSHLAB 08:20
PROVIDERS: Nurse Practitioner Family; PCP Family Medicine; Visit Provider Family Medicine
DX: R97.20 Elevated prostate specific antigen [PSA] (principal); E78.5 Hyperlipidemia, unspecified; Z11.59 Encounter for screening for other viral diseases; Z12.5 Encounter for screening for malignant neoplasm of prostate
CPT/HCPCS: 36415; 80053; 80061; 84153; 86803; G0103